=== PATIENT | male | born 1990 | race Caucasian/White ===

== ENCOUNTER 2016-09-08 09:39 | Emergency (ER) | payer MEDICAID, OTHER ==
[2016-09-08 10:01] VITALS: BP 126/87
[2016-09-08] MEDS ORDERED: Tetracaine 0.5% OPTH.SOL 15ML* BTL ONE ×2 (11:03)
[2016-09-08] MEDS ORDERED: Fluorescein Sodium TOPICAL* 1 MG TEST ONE ×2 (11:03)
[2016-09-08] MEDS ORDERED: BSS OPTH.SOL* BTL ONE ×2 (11:03)
--- NOTE | 2016-09-08 12:57 | UC ---
Angel Edwards Billy, scribed for Yamini Alvarez DO on 09/08/16 at 1057 . Eye Complaint HPI - HPI Summary HPI Summary: Patient is a 26 year-old male coming to [facility] [place] for evaluation of swelling around both eyes, worse in the right than the left. He states that he went fishing 2 days ago and was hit on the right side of his face by a tree branch. There was no significant pain or swelling at that time, but when he woke up yesterday, he noticed swelling in the right eye. He had been taking 2x Benadryl every 4-5 hours without any improvement, and he woke up this morning with worsening swelling, and eye crusted shut. He says that the eyelids are painful, but he denies any pain of the eyeball. The pain is worse when trying to look upwards. He reports mild photosensitivity. Denies any fever. Patient denies visual deficit. Patient does not use glasses or contact lenses. - History of Current Complaint Chief Complaint: UCEye Stated Complaint: SWELLING AROUND EYES Time Seen by Provider: 09/08/16 10:17 Hx Obtained From: Patient Onset/Duration: Gradual Onset, Lasting Days, Still Present Timing: Constant Severity Initially: Moderate Severity Currently: Moderate Pain Intensity: 3 Location of Injury: Eye Lid (lower), Eye Lid (upper) Aggravating Factor(s): Light Alleviating Factor(s): Nothing Associated Signs And Symptoms: Positive: Swelling. Negative: Fever Related History: Trauma - Risk Factors Penetrating Injury Risk Factor: Negative - Allergies/Home Medications Allergies/Adverse Reactions: Allergies Allergy/AdvReac Type Severity Reaction Status Date / Time No Known Allergies Allergy Verified 09/08/16 09:52 Home Medications: Home Medications diPHENhydraMINE PO* [Benadryl PO 25 MG TAB*] 2 tab PO Q4HR PRN 09/08/16 [ History Confirmed 09/08/16] PMH/Surg Hx/FS Hx/Imm Hx Previously Healthy: Yes Endocrine History Of: Denies: Diabetes Cardiovascular History Of: Denies: Cardiac Disorders - Surgical History Surgical History: None - Family History Known Family History: Negative: Cardiac Disease, Hypertension, Diabetes - Social History Occupation: Employed Full-time Alcohol Use: None Substance Use Type: None Smoking Status (MU): Never Smoked Tobacco Household Exposure Type: Cigarettes Review of Systems Constitutional: Negative Skin: Negative Eyes: Photophobia, Other - swelling ENT: Other - ongoing sinus congestion for several months Respiratory: Negative Cardiovascular: Negative Gastrointestinal: Negative Genitourinary: Negative Motor: Negative Neurovascular: Negative Musculoskeletal: Negative Neurological: Negative Psychological: Negative All Other Systems Reviewed And Are Negative: Yes Physical Exam Triage Information Reviewed: Yes Appearance: Well-Appearing, No Pain Distress, Well-Nourished Vital Signs: Initial Vital Signs Temp 98.0 F 09/08/16 09:54 Pulse 80 09/08/16 09:54 Resp 16 09/08/16 09:54 BP 126/87 09/08/16 09:54 Pulse Ox 100 09/08/16 09:54 Vital Signs Reviewed: Yes Eyes: Positive: Conjunctiva Clear, Other: - There is swelling of the eyelid and tissues around the eye, erythematous swelling around the eye with what appears to be honey-crusted lesions. Right eye is worse than left. There is no fluorescein uptake. Neck: Positive: Supple, Nontender Respiratory: Positive: Lungs clear, Normal breath sounds, No respiratory distress, No accessory muscle use Cardiovascular: Positive: RRR, No Murmur Musculoskeletal Exam: Normal Neurological Exam: Normal Neurological: Positive: Alert Psychological Exam: Normal Psychological: Positive: Age Appropriate Behavior Skin Exam: Other - Compared to the eye, there are more definitive honey-crusted lesions noted in the patches around the mouth and the lips. Eye Complaint Course/Dx - Differential Dx/Diagnosis Differential Diagnosis/HQI/PQRI: Conjunctivitis, Corneal Abrasion, Foreign Body , Periorbital Cellulitis, Other - impetigo Provider Diagnoses: impetigo - Physician Notification/Consults Discussed Patient Care With: Dr. Alyssia Sylvester ([facility]) @ 1123 Discharge - Discharge Plan Condition: Stable Disposition: HOME Prescriptions: Clindamycin Cap(NF) [Cleocin 300 mg Cap(NF)] 300 mg PO TID #21 cap Mupirocin Calcium [Bactroban Nasal] 2 % NA TID #1 tube Patient Education Materials: Impetigo (ED), Periorbital Cellulitis in Adults ( ED) Referrals: Favian Springer MD [Medical Doctor] - (Follow up in 1-2 days. Follow up sooner if symptoms worsen or new symptoms develop.) Biju Finn MD [Primary Care Provider] - (FOLLOW UP IN 2-3 DAYS.) Additional Instructions: ANTIBIOTIC THERAPY: You have been given an antibiotic prescription. It's important that you take all the medication, unless instructed otherwise by your physician. Failure to complete the entire course can result in relapse of your condition. Common side effects of antibiotics include nausea, intestinal cramping, or diarrhea. Women may develop vaginal yeast infections, and babies can get yeast (thrush) in the mouth following the use of antibiotics. Contact your physician if you develop significant side effects from this medication. Allergy to this antibiotic can result in hives, wheezing, faintness, or itching. If symptoms of allergy occur, stop the medication and call the doctor. ANY TIME YOU TAKE AN ANTIBIOTIC, IT IS IMPORTANT TO REPLENISH THE BODY'S BALANCE OF "GOOD" BACTERIA BY EATING HIGH QUALITY CULTURED FOOD SUCH YOGURT, SAURKRAUT OR CLARA CHI AND/OR TAKING A PROBIOTIC SUPPLEMENT. USE BACTROBAN OINTMENT TOPICALLY TO AFFECTED AREAS. AVOID CONTACT WITH EYES. USE SPARRINGLY ON LIPS.Ointment: Apply to affected area 3 times daily; re- evaluate after 3 to 5 days if no clinical response. The documentation as recorded by the Angel ramsey Billy accurately reflects the service I personally performed and the decisions made by me, Yamini Alvarez DO.
== END 2016-09-08 12:22 | disposition home or self-care (01) ==
LOC: UCEAST 09:39
DX: L01.00 Impetigo, unspecified (principal); Z77.22 Contact with and (suspected) exposure to environmental tobacco smoke (acute) (chronic)
CPT/HCPCS: 99212; A9270-GY; G0463

== ENCOUNTER 2016-09-09 17:50 | Emergency (ER) | payer MEDICAID, OTHER ==
[2016-09-09] MEDS ORDERED: Dexamethasone IV* 4 MG/ML 1 ML (4 MG) IV SLOW PU ONE (18:25)
[2016-09-09] MEDS ORDERED: Famotidine IV* 10 MG/ML 2 ML (20 mg) IV SLOW PU ONE (18:25)
[2016-09-09] MEDS ORDERED: diPHENhydraMINE IV* 50 MG/ML 1 ml VIAL (BENADRYL) SLOW PUSH ONE (18:25)
[2016-09-09] MEDS ORDERED: NS 0.9% 1000 ML* 1,000 ML IV ONE (18:25)
[2016-09-09 21:07] VITALS: BP 129/78
--- NOTE | 2016-09-10 22:30 | ED ---
Joe Edwarsd Adam, scribed for Enoc Michael MD on 09/09/16 at 202 . Allergic Reaction/Systemic - HPI Summary HPI Summary: Pt is a 26 year old female presenting with a possible allergic reaction. When he woke up on 09/07 after fishing all day on 09/06 his eyes were swollen mostly shut. He also presents with difficulty swallowing and numerous red garcía his arms and abdomen. He denies any hoarseness in his voice. Benadryl did not alleviate his symptoms so he went to urgent care where he was given Clindamycin and ointment which he states did not alleviate his symptoms either. He states that the symptoms have not gotten any better since the onset and have possibly gotten worse. - History of Current Complaint Chief Complaint: EDAllergicReaction Time Seen by Provider: 09/09/16 18:25 Hx Obtained From: Patient Onset/Duration: Gradual Onset, Started days ago, Still Present Timing: Constant, Lasting Days Severity Initially: Moderate Severity Currently: Moderate Pain Intensity: 0 Pain Scale Used: 0-10 Numeric Location: Discrete @ - Face, arms, abdomen Character: Swelling, Hives Associated Signs And Symptoms: Positive: Other: - Difficulty swallowing - Allergies/Home Medications Allergies/Adverse Reactions: Allergies Allergy/AdvReac Type Severity Reaction Status Date / Time No Known Allergies Allergy Verified 09/08/16 09:52 PMH/Surg Hx/FS Hx/Imm Hx Endocrine/Hematology History: Denies: Hx Diabetes Neurological History: Denies: Hx Headaches Infectious Disease History: No Infectious Disease History: Denies: Traveled Outside the [place] in Last 30 Days - Family History Known Family History: Negative: Cardiac Disease, Hypertension, Diabetes - Social History Alcohol Use: None Substance Use Type: Reports: None Smoking Status (MU): Never Smoked Tobacco Review of Systems Negative: Fever, Chills Negative: Erythema Positive: Other - Difficulty swallowing Negative: Chest Pain Negative: Shortness Of Breath, Cough Negative: Abdominal Pain, Vomiting, Nausea Negative: dysuria, hematuria Positive: Edema - Facial. Negative: Myalgia Positive: Other - Red garcía on right forearm and abdomen Neurological: Other - Negative dizziness All Other Systems Reviewed And Are Negative: Yes Physical Exam - Summary Physical Exam Summary: Constitutional: Well-developed, Well-nourished, Alert. (-) Distressed Skin: Vesicles and hives on right forearm and abdomen. HENT: Infraorbital edema. Eyes: Conjunctiva normal Neck: Musculoskeletal ROM normal neck. (-) JVD, (-) Stridor, (-) Tracheal deviation Cardio: Rhythm regular, rate normal, Heart sounds normal; Intact distal pulses; The pedal pulses are 2+ and symmetric. Radial pulses are 2+ and symmetric. (-) Murmur Pulmonary/Chest wall: Effort normal. (-) Respiratory distress, (-) Wheezes, (-) Rales Abd: Soft, (-) Tenderness, (-) Distension, (-) Guarding, (-) Rebound Musculoskeletal: (-) Edema Lymph: (-) Cervical adenopathy Neuro: Alert, Oriented x3 Psych: Mood and affect Normal Triage Information Reviewed: Yes Vital Signs On Initial Exam: Initial Vitals Temp Pulse Resp BP Pulse Ox 99.2 F 100 16 128/81 100 09/09/16 17:54 09/09/16 17:54 09/09/16 17:54 09/09/16 17:54 09/09/16 17:54 Vital Signs Reviewed: Yes Diagnostics - Vital Signs Vital Signs Temp Pulse Resp BP Pulse Ox 09/09/16 17:54 99.2 F 100 16 128/81 100 - Laboratory Lab Statement: Any lab studies that have been ordered have been reviewed, and results considered in the medical decision making process. Re-Evaluation - Re-Evaluation First Eval Re-Evaluation Time: 20:27 - Difficulty swallowing is improved. Pt is able to swallow completely. Lung sounds are clear. Pt is feeling much better. He will be discharged. Change: Improved Allergic Reaction Course/Dx - Diagnoses Provider Diagnoses: Allergic reaction to poison amanda Discharge - Discharge Plan Condition: Stable Disposition: HOME Prescriptions: Loratadine 10 mg PO DAILY #10 cap diPHENhydraMINE PO* [Benadryl PO 50 MG CAP*] 50 mg PO Q6H PRN #40 cap PRN Reason: Itching predniSONE TAB* [Deltasone TAB*] 40 mg PO DAILY #5 tab Patient Education Materials: General Allergic Reaction (ED) Referrals: Biju Finn MD [Primary Care Provider] - Additional Instructions: Follow up with Dr. Finn in 2 days. The documentation as recorded by the Joe ramsey Adam accurately reflects the service I personally performed and the decisions made by Fernanda bergman Jerry, MD.
== END 2016-09-09 21:15 | disposition home or self-care (01) ==
LOC: ED 17:50
DX: L23.7 Allergic contact dermatitis due to plants, except food (principal); L50.9 Urticaria, unspecified; R13.10 Dysphagia, unspecified; H02.849 Edema of unspecified eye, unspecified eyelid; X58.XXXA Exposure to other specified factors, initial encounter
CPT/HCPCS: 96374; 96375; 99284; J1100; J1200

== ENCOUNTER 2019-05-30 07:16 | Emergency (ER) | payer OTHER ==
[2019-05-30 07:37] VITALS: BP 150/93
--- NOTE | 2019-05-30 07:48 | UC ---
Skin Complaint HPI - HPI Summary HPI Summary: 28-year-old male comes in with a chief complaint of laceration to the left thumb. Happened about 3 AM while at work. 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 He did wrap it. Every time he bumped it bled again. Last tetanus was 4 years ago. No complaint of numbness or weakness. - History of Current Complaint Chief Complaint: UCUpperExtremity Time Seen by Provider: 05/30/19 07:25 Stated Complaint: FINGER INJURY Pain Intensity: 5 - Allergy/Home Medications Allergies/Adverse Reactions: Allergies Allergy/AdvReac Type Severity Reaction Status Date / Time No Known Allergies Allergy Verified 05/30/19 07:29 Home Medications: Home Medications NK [No Home Medications Reported] 05/30/19 [History Confirmed 05/30/19] PMH/Surg Hx/FS Hx/Imm Hx Previously Healthy: Yes - Surgical History Surgical History: None - Family History Known Family History: Negative: Cardiac Disease, Hypertension, Diabetes - Social History Alcohol Use: None Substance Use Type: None Smoking Status (MU): Never Smoked Tobacco Household Exposure Type: Cigarettes Review of Systems All Other Systems Reviewed And Are Negative: Yes Constitutional: Positive: Negative Skin: Positive: Other - SEE HPI Eyes: Positive: Negative ENT: Positive: Negative Respiratory: Positive: Negative Cardiovascular: Positive: Negative Gastrointestinal: Positive: Negative Motor: Positive: Negative Neurovascular: Positive: Negative Musculoskeletal: Positive: Negative Neurological: Positive: Negative Psychological: Positive: Negative Is Patient Immunocompromised?: No Physical Exam Triage Information Reviewed: Yes Appearance: Well-Appearing, No Pain Distress, Well-Nourished Vital Signs: Initial Vital Signs Temp 98.2 F 05/30/19 07:25 Pulse 62 05/30/19 07:25 Resp 22 05/30/19 07:25 BP 150/93 05/30/19 07:25 Pulse Ox 100 05/30/19 07:25 Vital Signs Reviewed: Yes Eye Exam: Normal Eyes: Positive: Conjunctiva Clear Neck: Positive: Supple Respiratory: Positive: No respiratory distress Musculoskeletal: Positive: Strength Intact, ROM Intact, Other: - On the left thumb where the injury is normal capillary refill normal sensation. Neurological: Positive: Alert, Muscle Tone Normal Psychological: Positive: Age Appropriate Behavior Skin: Positive: Other - Left thumb has a 1.5 cm subcutaneous laceration along the ulnar aspect through the fingernail. Wound was cleansed by nursing. Bleeding stopped with direct pressure. I applied adhesive glue and nursing applied a protective dressing. Patient neurovascularly intact after procedure. Laceration Repair - Laceration Repair 1 Description: Linear Laceration Size After Repair: Length (cm) - 1.5 cm Modified For Repair: No Irrigation With Pressure Irrigation Device: Yes Closure Material: Skin Adhesive Course/Dx - Diagnoses Provider Diagnosis: Laceration of left thumb with damage to nail Discharge ED - Sign-Out/Discharge Documenting (check all that apply): Patient Departure All imaging exams completed and their final reports reviewed: No Studies - Discharge Plan Condition: Stable Disposition: HOME Patient Education Materials: Finger Laceration (ED), Skin Adhesive Care (ED) Forms: *Work Release Referrals: Biju Finn MD [Primary Care Provider] - Additional Instructions: FOLLOW UP WITH YOUR DOCTOR IF NOT COMPLETELY IMPROVED. GET REEVALUATED SOONER IF NOT IMPROVED OR WORSE; SIGNS OF INFECTION OR ANY QUESTIONS OR CONCERNS. - Billing Disposition and Condition Condition: STABLE Disposition: Home
== END 2019-05-30 08:19 | disposition home or self-care (01) ==
LOC: UCEAST 07:16
DX: S61.112A Laceration without foreign body of left thumb with damage to nail, initial encounter (principal); W27.8XXA Contact with other nonpowered hand tool, initial encounter; Y92.9 Unspecified place or not applicable; Y99.0 Civilian activity done for income or pay
CPT/HCPCS: 12001; 99211; G0463